=== PATIENT | female | born 1970 | race Caucasian/White ===

== ENCOUNTER → 2018-01-21 | Outpatient (CLI) | payer OTHER ==
[~2018-01-21] MED LIST: BUTATAB6 PO; ESTR.625 PO; FIORIC PO; FLUT50SP EACH NARE; FURO20TA PO; GABA600T PO; LOSA50TA PO; MEDR5TAB3 PO; PANT40TA3 PO; PAXI10TA8 PO; PROT40TA PO; TRAZ100T10 PO; ZOLP10TA3 PO
[2018-01-21 12:49] LABS: AUTOMATED NEUTROPHIL # 4.2 TH/MM3 (1.8-7.7); BASOPHIL % 0.5 % (0.0-2.0); EOSINOPHIL % 0.4 % (0.0-4.0); HEMATOCRIT 38.2 % (35.0-46.0); LYMPH % 29.3 % (9.0-44.0); MEAN CELL VOLUME 94.9 FL (80.0-100.0); MEAN CORPUSCULAR HEMOGLOBIN 32.2 PG (27.0-34.0); MEAN PLATELET VOLUME 7.7 FL (7.0-11.0); MONO % 8.5 % (0.0-8.0); MONOCYTE # 0.6 TH/MM3 (0-0.9); NEUT % 61.3 % (16.0-70.0); PLATELET COUNT 280 TH/MM3 (150-450); RED BLOOD COUNT 4.02 MIL/MM3 (4.00-5.30); RED CELL DISTRIBUTION WIDTH 13.8 % (11.6-17.2); WHITE BLOOD COUNT 6.9 TH/MM3 (4.0-11.0)
== END ==
LOC: CPRE 11:59
PROVIDERS: ATTEND Obstetrics & Gynecology
DX: Z01.812 Encounter for preprocedural laboratory examination (principal); N39.3 Stress incontinence (female) (male)
CPT/HCPCS: 36415; 85025

== ENCOUNTER → 2018-01-24 | Day surgery (SDC) | payer OTHER ==
[~2018-01-24] VITALS: Ht 165.1 cm; Wt 88.4 kg
[~2018-01-24] MED LIST changes: +BUPIVACAINE/EPINEPHRINE 0.25% PF 10 ML VIAL ONE; +CHLORHEXIDINE GLUCONATE 2 % 1 PACK (2 CLOTHS) TOPICAL PRN; +DEXAMETHASONE SOD PHOS 4 MG/ML VIAL IV ONE; +DO NOT ADM ANY ANTICOAGULANT DRUGS PRN; +ESTROGENS CONJUGATED VAG CREA 15 APPL/30 GM TUBE ONE; -FIORIC PO; -GABA600T PO; +KETOROLAC TROMETHAMINE 30 MG/ML (IVP) VIAL IV PUSH ONE; +LACTATED RINGER'S 1000 ML IV PRN; +LIDOCAINE HCL 1% PF 5 ML SYRINGE OTHER ONE; +LORazepam 0.5 MG TAB PO PRN; +METOPROLOL TARTRATE 25 MG TAB PO PRN; +ONDANSETRON HCL 4 MG/2 ML VIAL IV PUSH ONE; +ONDANSETRON ODT 4 MG TAB PO PRN; +POVIDONE IODINE 5% (ANTISEPSIS KIT) 4 APPLICATIONS EACH NARE PRN; +PROMETHAZINE INJ 25 MG/ML VIAL IM PRN; +PROPOFOL 200 MG/20 ML AMP IV ONE; -PROT40TA PO; +SODIUM CHLORID 0.9% 500 ML IV PRN; +ceFAZolin 2 GM/DEX PREMIX 50 ML IV SCH; +diphenhydrAMINE HCL 25 MG CAP PO PRN; +fentaNYL CITRATE 250 MCG/5 ML AMP ONE; +oxyCODONE/ACETAMINOPHEN 5 MG/325 MG TAB PO PRN
--- NOTE | 2018-01-24 08:38 | PD.OP ---
Operative Report 1. Stress urinary incontinence Postoperative Diagnosis: 1. Stress urinary incontinence 2. Cystotomy Procedure: Tension free retropubic vaginal tape, using colpoplast supris. Anesthesia: General endotracheal Surgeon: Fred Chang Glass Mechanic(s): Ale [facility] OR scrub staff Resident Surgeon: None Operation and Findings: Findings: 1. Normal external female genitalia vagina and cervix 2. Cystoscopy after first pass showed mesh traversing the anterior bladder bilaterally, after replacement of mesh, normal ureteroscopy and cystoscopy with no mesh present, cystotomy sites hemostatic Specimen: None Estimated blood loss: 200 cc Fluid replacement: 600 cc lactated Ringer's Urine output: Approximately 100 cc DVT prophylaxis: Sequential compression devices throughout the case Antibiotics: 2 g Ancef preoperatively Counts: correct x2 Time out done: yes Complications: Cystotomy, no need to repair Disposition: Stable to PACU then home Indications: Patient is a 47-year-old female who was seen in outpatient setting with diagnosis of stress urinary incontinence, we discussed nonsurgical and surgical options, patient elected for the above procedure, she was counseled on the risks benefits and expected outcomes of this. Consent: Patient understands the risks, benefits, and alternatives of tension free vaginal tape including but not limited to bleeding, infection, damage to organs and tissues, pain, scarring, deep vein thrombosis, pulmonary embolus, temporary or permanent nerve injury, need for further surgery, need for blood transfusion, temporary and possible permanent urinary, mesh erosion, complications that cannot be predicted or prevented, and with any procedure the small risk of . Estimated 5 year cure rate of 85%, with additional 10% significantly improved. Description: The patient was placed under general anesthesia, placed in lithotomy position in candy can stirrups, the vaginal and lower abdomen were prepped and draped in standard fashion. Abdominal incision sites marked 2 cm equidistant away from the midline and just above the pubic symphysis. A morris was inserted and the bladder drained, a weighted speculum was placed and local anesthesia was used to infiltrate the area of anticipated vaginal incision. A 2- 3cm incision was made with a scalpel 1cm proximal to the urethral meatus on the anterior vagina, metzenbaum scissors were used to create periurethral tunnels on either side just beneath the vaginal mucosa. The mesh tape was inserted into the supris trocar and using my vaginal hand, guided through the created tunnels directed toward the pubic bone and passing just inferior and then through the space of retzius then exiting via the marked abdominal site, the same was done on the contralateral side. A 70 degree cystoscope was inserted into the bladder and a full survey was done, the mesh was visualized entering the bladder and exiting a bladder bilaterally on the anterior dome. The cystoscope was removed , the bladder was drained with the Morris, the mesh was removed and repassed with a better attempt to hug along the posterior side of the pubic bone and passing through the skin just caudal to the prior exit sites. The cystoscope was reinserted and a survey was reperformed, there was no mesh present, the prior cystotomy sites were hemostatic, the ureters were effluxing bilaterally, and there is no visualized trauma to the urethra. The cystoscope was removed and the tape was positioned to be tension free but supporting the urethra. The tape was cut flush with the skin. The vaginal incision closed with running 3-0 vicryl and the skin sites closed with skin glue. Fred Chang MD Jan 24, 2018 08:38
[2018-01-24 09:21] VITALS: BP 116/69; PULSE 67; RESP 16; TEMP 97.3; O2SAT 99
== END | disposition home or self-care (01) ==
LOC: HSDC 05:17
PROVIDERS: ATTEND Obstetrics & Gynecology
DX: N39.3 Stress incontinence (female) (male) (principal)
CPT/HCPCS: 00860; 57288; C1771; J0690; J1100; J1885; J2405; J3010; J7120